=== PATIENT | male | born 1995 | race Caucasian/White ===

== ENCOUNTER 2018-10-05 07:47 | Emergency (ER) | payer SELFPAY ==
[~2018-10-05] VITALS: Ht 170.2 cm; Wt 69.8 kg
[~2018-10-05 07:47] MED LIST: IBUP-1542 PO; IBUP-1706; TRAM50TA2 PO
[2018-10-05 07:52] VITALS: BP 168/76; PULSE 73; RESP 20; Ht 170.2 cm; Wt 69.8 kg
--- NOTE | 2018-10-05 08:51 | ERD ---
ER Documentation Chief Complaint Chief Complaint c/o left lower abdominal pain, more pain when carrying heavy loads HPI 23-year-old male with no reported past medical history who presents with complaint of left lower pelvic pain over the past several months. Describes sharp intermittent pain localized to left pelvic region with intermittent radiation dull this discomfort to the left testicle which only occurs with heavy lifting. 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 He denies noticing any abdominal pelvic mass, denies fevers, chills, urinary symptoms, penile discharge, worsening of testicular pain. He otherwise is without complaint. ROS All systems reviewed and are negative except as per history of present illness. Medications Home Meds Active Scripts Tramadol HCl (Tramadol HCl) 50 Mg Tablet, 50 MG PO Q4 PRN for PAIN, #20 TAB Prov:SIDRA LOO PA-C 10/05/18 Ibuprofen* (Motrin*) 600 Mg Tab, 600 MG PO Q6, #30 TAB Prov:SIDRA LOO PA-C 10/05/18 Reported Medications Ibuprofen* Susp (Motrin* Susp) 20 Mg/Ml Susp 01/28/12 Allergies Allergies: Coded Allergies: No Known Allergy (Verified , 01/28/12) PMhx/Soc Medical and Surgical Hx: pt denies Medical Hx, pt denies Surgical Hx History of Surgery: No Anesthesia Reaction: No Hx Neurological Disorder: No Hx Respiratory Disorders: No Hx Cardiac Disorders: No Hx Psychiatric Problems: No Hx Miscellaneous Medical Probl: No Hx Alcohol Use: Yes (occasional) Hx Substance Use: Yes (marijuana) Hx Tobacco Use: Yes Smoking Status: Current some day smoker FmHx Family History: No diabetes, No coronary disease, No other Physical Exam Vitals Vital Signs Date Temp Pulse Resp B/P (MAP) Pulse Ox O2 O2 Flow FiO2 Time Delivery Rate 10/05/18 97.4 73 20 168/76 100 07:52 (106) Physical Exam I have reviewed the triage vital signs. Const: Well nourished, well developed, appears stated age Eyes: PERRL, no conjunctival injection HENT: NCAT, Neck supple without meningismus CV: RRR, Warm, well-perfused extremities RESP: CTAB, Unlabored respiratory effort GI: soft, non-tender, non-distended, no masses : No pain on palpation of bilateral testicles, no erythema swelling or masses, no masses palpated on abdominal wall laying flat and with coughing, no tenderness elicited on deep palpation of left pelvic region, cremasteric reflex intact MSK: No gross deformities appreciated Skin: Warm, dry. No rashes Neuro: grossly non focal Psych: Appropriate mood and affect. Procedures/MDM 23-year-old male presents with complaint of left lower pelvic pain. Symptoms likely musculoskeletal in nature as the only occur with exertion. I have low suspicion for any acute process warranting further emergent care such as strangulated hernia, intra-abdominal intrapelvic infection, testicular torsion or any other emergent cause of his symptoms. Will discharge with NSAID medications and recommend PMD follow-up. DISPOSITION PLAN: We discussed follow up with the patient's primary care doctor within 24 to 48 hours. Patient counseled regarding my diagnostic impression and care plan. Prior to discharge all questions answered. Pt agrees with treatment plan and understands strict return precautions. Precautionary instructions provided including instructions to return to the ER if not improving or for any worsening or changing symptoms or concerns. Disclaimer: Inadvertent spelling and grammatical errors are likely due to EHR/dictation software use and do not reflect on the overall quality of patient care. Also, please note that the electronic time recorded on this note does not necessarily reflect the actual time of the patient encounter. Departure Diagnosis: Primary Impression: Pelvic pain Condition: Stable Patient Instructions: Hernia (Inguinal, Ventral, Umbilical), Muscle Strain, Abdomen Referrals: [facility] YOU HAVE RECEIVED A MEDICAL SCREENING EXAM AND THE RESULTS INDICATE THAT YOU DO NOT HAVE A CONDITION THAT REQUIRES URGENT TREATMENT IN THE EMERGENCY DEPARTMENT. FURTHER EVALUATION AND TREATMENT OF YOUR CONDITION CAN WAIT UNTIL YOU ARE SEEN IN YOUR DOCTORS OFFICE WITHIN THE NEXT 1-2 DAYS. IT IS YOUR RESPONSIBILITY TO MAKE AN APPOINTMENT FOR FOLOW-UP CARE. IF YOU HAVE A PRIMARY DOCTOR --you should call your primary doctor and schedule an appointment IF YOU DO NOT HAVE A PRIMARY DOCTOR YOU CAN CALL OUR PHYSICIAN REFERRAL HOTLINE AT IF YOU CAN NOT AFFORD TO SEE A PHYSICIAN YOU CAN CHOSE FROM THE FOLLOWING [facility] [address] [facility]. [facility] [address] [facility] [address] [facility]. [facility] [address] [facility]. [facility] [address] [facility] [address] Additional Instructions: Call your primary care doctor TOMORROW for an appointment during the next 2-3 days.See the doctor sooner or return here if your condition worsens before your appointment time. SIDRA LOO PA-C Oct 05, 2018 08:50
== END 2018-10-05 09:09 | disposition home or self-care (01) ==
LOC: FTE 07:47
DX: R10.2 Pelvic and perineal pain (principal); F17.210 Nicotine dependence, cigarettes, uncomplicated
CPT/HCPCS: 99283